=== PATIENT | female | born 1930 | race Caucasian/White ===

== ENCOUNTER 2018-11-14 10:26 | Inpatient (IN) | payer MEDICARE ==
[~2018-11-14] VITALS: Ht 153.7 cm; Wt 60.3 kg
[~2018-11-14 10:26] MED LIST: ALDACTONE25 MG PO; CALTRATE-600 W1 EACH PO; CENTRUM SILVER1 EAC4 PO; DILANTIN50 MG PO; DILTIAZEM ER180 M1 PO; LEVOTHYROXINE25 MCG PO; LISINOPRIL40 MG PO; OCUVITE TABLET1 EAC1 PO; VYTORIN 10-101 EACH PO
[2018-11-14] MEDS ORDERED: SODIUM CHLORIDE 0.9% 1000ML 1,000 ML IV STA (10:37)
[2018-11-14] MEDS ORDERED: ONDANSETRON HCL INJ 2MG/ML 2ML 2 MG/ML VIAL IV ONE ×2 (10:37→14:30)
--- NOTE | 2018-11-14 10:40 | NUR ---
RECEIVED PT FROM [employer] VIA W/C. PT AA&OX3. MOVES RIGHT UPPER AND LOWER EXTREMITIES WITH MODERATE WEAKNESS. LEFT UPPER AND LOWER EXT. FLACCID DUT TO STROKE 30 YRS AGO. PT SLIGHTLY [place]. SPEECH IS CLEAR. FAMILY AT BEDSIDE.
[2018-11-14] MEDS ORDERED: DIATRIZOATE MEGL/DIATRIZOA SOD 30 ML BTL PO ONE (11:09)
[2018-11-14 11:49] LABS: BASOPHILS % 0.2 % (0.0-1.0); EOSINOPHILS % 0.1 % (0.0-6.0); HEMATOCRIT 34.3 % (34.2-44.1); LYMPHOCYTES # (AUTO) 1.2 (1.0-3.2); LYMPHOCYTES % 7.9 % (18.0-39.1); MEAN CORPUSCULAR HEMOGLOBIN 29.9 pg (28-32); MEAN CORPUSCULAR HGB CONC 32.9 g/dL (31-35); MEAN CORPUSCULAR VOLUME 90.7 fL (81-99); MONOCYTES # (AUTO) 0.8 (0.2-0.8); MONOCYTES % 5.4 % (4.4-11.3); NEUTROPHILS % 86.1 % (38.7-80.0); PLATELET COUNT 532 x10e3/uL (140-360); RED BLOOD COUNT 3.78 x10e6/uL (3.6-5.1); RED CELL DISTRIBUTION WIDTH 14.6 % (11.7-14.4)
[2018-11-14 11:59] LABS: HEMOGLOBIN 11.3 g/dL (12.0-16.0)
[2018-11-14 12:03] LABS: INR 1.09; PROTHROMBIN TIME 14.6 seconds (11.9-14.5)
[2018-11-14 12:04] LABS: PARTIAL THROMBOPLASTIN TIME 29.2 seconds (23.8-35.5)
[2018-11-14 12:11] LABS: ALANINE AMINOTRANSFERASE 8 IU/L (0-55); ALBUMIN 3.1 g/dL (3.5-5.0); ALBUMIN/GLOBULIN RATIO 0.8 (0.8-2.0); ALKALINE PHOSPHATASE 58 IU/L (40-150); BLOOD UREA NITROGEN 25 mg/dL (7-26); BUN/CREATININE RATIO 33 (6-25); CALCIUM 9.6 mg/dL (8.4-10.2); CARBON DIOXIDE 22 mmol/L (22-29); CHLORIDE 94 mmol/L (98-107); CREATINE KINASE 38 IU/L (29-168); CREATININE, SERUM 0.75 mg/dL (0.57-1.11); EST GLOMERULAR FILTRATION RATE > 60 ML/MIN (60-); GLUCOSE 104 mg/dL (74-118); SODIUM 133 mmol/L (136-145)
[2018-11-14 12:17] LABS: B-TYPE NATRIURETIC PEPTIDE2 108.8 pg/mL (0-100)
[2018-11-14 12:31] LABS: THYROID STIMULATING HORMONE 1.085 uIU/mL (0.350-4.940)
--- NOTE | 2018-11-14 12:40 | NUR ---
STRAIGHT CATH DONE FOR URINE COLLECTION. PT TOLERATED WELL.
[2018-11-14 13:16] LABS: BILIRUBIN,URINE NEGATIVE (NEGATIVE); CLARITY,URINE SL CLOUDY (CLEAR); COLOR,URINE STRAW (YELLOW); KETONES,URINE 2+ (NEGATIVE); LEUKOCYTE ESTERASE ,URINE 1+ (NEGATIVE); NITRITE,URINE POSITIVE (NEGATIVE); PROTEIN,URINE DIPSTICK NEGATIVE (NEGATIVE); URINE UROBILINOGEN 0.2 mg/dL (0.2 - 1)
--- NOTE | 2018-11-14 13:26 | NUR ---
PTS SON REPORTS THAT PT HAVING NAUSEA. NO VOMITING YET
[2018-11-14 13:27] LABS: BACTERIA,URINE MANY /HPF
[2018-11-14] MEDS: CEFTRIAXONE SOD 1 GM/NS 50 ML 50 ML IV SCH (14:15)
--- NOTE | 2018-11-14 14:15 | NUR ---
PT COMPLAINING OF NAUSEA. ASKING FOR MEDICATION. SPOKE WITH ASSEMBLY INSPECTOR AND INFORMED HIM
--- NOTE | 2018-11-14 14:30 | Diagnostic Imaging Report ---
EXAM: CT Abdomen and Pelvis WITH contrast INDICATION: Constipation, evaluate for small bowel obstruction. COMPARISON: None. TECHNIQUE: Abdomen and pelvis were scanned utilizing a multidetector helical scanner from the lung base to the pubic symphysis after administration of IV contrast. Coronal and sagittal reformations were obtained. Routine protocol was performed. Scan was performed when during portal venous phase. IV CONTRAST: 100 cc of Isovue-370. ORAL CONTRAST: Water COMPLICATIONS: None RADIATION DOSE: Total DLP: 243.9 mGy*cm Dose modulation, iterative reconstruction, and/or weight based adjustment of the mA/kV was utilized to reduce the radiation dose to as low as reasonably achievable. FINDINGS: LINES and TUBES: None. LOWER THORAX: There is a 5 mm solid nodule in the right middle lobe on series 2, image 3. HEPATOBILIARY: There is a 1.8 cm right hepatic lobe hypodense lesion, likely cyst. No definite solid mass. No biliary ductal dilation. GALLBLADDER: Cholelithiasis without CT evidence of cholecystitis. SPLEEN: No splenomegaly. PANCREAS: No focal masses or ductal dilatation. ADRENALS: No adrenal nodules KIDNEYS/URETERS: Kidneys enhance symmetrically. No evidence of hydronephrosis, solid mass, or stone. GI TRACT: There is a ill-defined, large heterogeneous, likely partially necrotic mass in the distal transverse colon, measuring up to 8.5 x 8.1 x 6.2 cm, as seen on series 2, image 45. The mass extends over a length of approximately 8 cm. There is surrounding ill-defined pericolonic nodularity, likely lymphadenopathy, for example measuring up to 2.8 cm on image 35. There is dilation of the small bowel as well as the proximal colon including the ascending and transverse colon proximal to the mass. There is decompression of the distal colon with minimal amount of air and stool seen within the rectum. There is ill-defined perirectal soft tissue, likely representing lymphadenopathy, measuring up to 2.8 x 1.8 cm on series 2, image 64. There are jejunal loops which abut the mass, and may be adherent. There may be adjacent rectal wall thickening. PELVIC ORGANS/BLADDER: Unremarkable. LYMPH NODES: See GI section above for details of pericolonic and perirectal lymphadenopathy. There is an enlarged gastric hepatic lymph node, measuring up to 1.1 cm short axis on image 16. There are prominent left para-aortic lymph nodes, measuring up to 7 mm. VESSELS: Moderate atherosclerotic changes of the abdominal aorta and branch vessels. There is an IVC filter which appears deformed with multiple struts penetrating through the IVC wall including into the vertebral bodies, the peripancreatic soft tissues, and in the right paraspinal musculature. There is a large right hepatic vein to portal vein connection on series 2, image 20. PERITONEUM / RETROPERITONEUM: No free air or fluid. BONES AND SOFT TISSUES: There are mildly displaced subacute left posterior 10th through 12th rib fractures with associated small amount of bony callus formation. CONCLUSION: Ill-defined large heterogeneous mass in the distal transverse colon with associated near complete obstruction of the proximal colon and small bowel. No evidence of pneumatosis or pneumoperitoneum. Findings are consistent with malignancy. Associated pericolonic and gastrohepatic lymphadenopathy. Possibly adherent jejunal loops as above. Additional perirectal soft tissue, likely representing lymphadenopathy measuring up to 2.8 cm with possible rectal wall thickening. This may represent an additional malignancy. Recommend GI consultation for further evaluation. A 5 mm indeterminant right middle lobe pulmonary nodule. Suggest follow-up chest CT for oncologic staging. IVC filter with extensive caval penetration as above. Mildly displaced subacute left posterior 10th through 12th rib fractures. 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 Signed by: Dr. Radha Quinones MD on 11/14/2018 2:27 PM
[2018-11-14] MEDS ORDERED: CEFTRIAXONE SOD 1 GM/NS 50 ML 50 ML IV SCH (14:45)
--- NOTE | 2018-11-14 14:55 | NUR ---
ER PHYSICIAN SPOKE EXTENSIVELY WITH PATIENT AND FAMILY ABOUT CT FINDINGS AND PLAN FOR ADMISSION
--- OUTSIDE RECORDS SUMMARY | 2018-11-14 14:55 | XMS REPORT ---
Author Author [facility] Address Unknown Phone Unavailable Care Team Providers Care Screening Representative Name Role Phone Kristie WAGONER Unavailable Unavailable Problems This patient has no known problems. Allergies, Adverse Reactions, Alerts This patient has no known allergies or adverse reactions. Medications This patient has no known medications. Results Test Description Test Time Test Comments Text Results Atomic Results Result Comments CT ABDOMEN/PELVIS W 2018-11-14 14:05:00 [facility] [address] [place], [place] [address] Patient Name: COOKIE OLIVA MR #: [id number] : 1930 Age/Sex: 88/F Req #: [id number] Adm Physician: Ordered by: EPI VENEGAS MANAGER BIOLOGICS Report #: [id number] Location: ER Room/Bed: Procedure: [id number] CT/CT ABDOMEN/PELVIS W Exam Date: 11/14/18 Exam Time: 1230 REPORT STATUS: Signed EXAM: CT Abdomen and Pelvis WITH contrast INDIC ATION: Constipation, evaluate for small bowel obstruction. COMPARISON: None. TECHNIQUE: Abdomen and pelvis were scanned utilizing a multidetector helical scanner from the lung base to the pubic symphysis after administration of IV contrast. Coronal and sagittal reformations were obtained. Routine protocol was performed. Scan was performed when during portal venous phase. IV CONTRAST: 100 cc of Isovue-370. ORAL CONTRAST: Water COMPLICATIONS: None RADIATION DOSE: Total DLP: 243.9 mGy*cm Dose modulation, iterative reconstruction, and/or weight based adjustment of the mA/kV was utilized to reduce the radiation dose to as low as reasonably achievable. FINDINGS: LINES and TUBES: None. LOWER THORAX: There is a 5 mm solid nodule in the right middle lobe on series 2, image 3. HEPATOBILIARY: There is a 1.8 cm right hepatic lobe hypodense lesion, likely cyst. No definite solid mass. No biliary ductal dilation. GALLBLADDER: Cholelithiasis without CT evidence of cholecystitis. SPLEEN: No splenomegaly. PANCREAS: No focal masses or ductal dilatation. ADRENALS: No adrenal nodules KIDNEYS/URETERS: Kidneys enhance symmetrically. No evidence of hydronephrosis, solid mass, or stone. GI TRACT: There is a ill-defined, large heterogeneous, likely partially necrotic mass in the distal transverse colon, measuring up to 8.5 x 8.1 x 6.2 cm, as seen on series 2, image 45. The mass extends over a length of approximately 8 cm. There is surrounding ill-defined pericolonic nodularity, likely lymphadenopathy, for example measuring up to 2.8 cm on image 35. There is dilation of the small bowel as well as the proximal colon including the ascending and transverse colon proximal to the mass. There is decompression of the distal colon with minimal amount of air and stool seen within the rectum. There is ill-defined perirectal soft tissue, likely representing lymphadenopathy, measuring up to 2.8 x 1.8 cm on series 2, image 64. There are jejunal loops which abut the mass, and may be adherent. There may be adjacent rectal wall thickening. PELVIC ORGANS/BLADDER: Unremarkable. LYMPH NODES: See GI section above for details of pericolonic and perirectal lymphadenopathy. There is an enlarged gastric hepatic lymph node, measuring up to 1.1 cm short axis on image 16. There are prominent left para-aortic lymph nodes, measuring up to 7 mm. VESSELS: Moderate atherosclerotic changes of the abdominal aorta and branch vessels. There is an IVC filter which appears deformed with multiple struts penetrating through the IVC wall including into the vertebral bodies, the peripancreatic soft tissues, and in the right paraspinal musculature. There is a large right hepatic vein to portal vein connection on series 2, image 20. PERITONEUM / RETROPERITONEUM: No free air or fluid. BONES AND SOFT TISSUES: There are mildly displaced subacute left posterior 10th through 12th rib fractures with associated small amount of bony callus formation. CONCLUSION: Ill-defined large heterogeneous mass in the distal transverse colon with associated near complete obstruction of the proximal colon and small bowel. No evidence of pneumatosis or pneumoperitoneum. Findings are consistent with malignancy. Associated pericolonic and gastrohepatic lymphadenopathy. Possibly adherent jejunal loops as above. Additional perirectal soft tissue, likely representing lymphadenopathy measuring up to 2.8 cm with possible rectal wall thickening. This may represent an additional malignancy. Recommend GI consultation for further evaluation. A 5 mm indeterminant right middle lobe pulmonary nodule. Suggest follow-up chest CT for oncologic staging. IVC filter with extensive caval penetration as above. Mildly displaced subacute left posterior 10th through 12th rib fractures. 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 Signed by: Dr. Jose De Jesus Kingston MD on 11/14/2018 2:27 PM Dictated By: JOSE DE JESUS KINGSTON MD [id number] Transcribed By: KANDI on 11/14/18 1427 COPY TO: EPI VENEGAS NP
--- NOTE | 2018-11-14 15:40 | NUR ---
WHEN ER PHYSICIAN SPOKE WITH PATIENT EARLIER SHE TOLD HER TO LET US KNOW WHEN SHE NEEDED PAIN MED. PATIENT TOLD ME NOW THAT SHE WAS READY FOR PAIN MED. TALKED TO ERP AND MORPHINE ORDERED.
[2018-11-14] MEDS ORDERED: MORPHINE SULFATE INJ 4 MG/ML INJ 1ML IV PRN (15:45)
[2018-11-14] MEDS ORDERED: IOPAMIDOL 370 MG/ML 200 ML INFUS..BTL INJ ONE (15:55)
[2018-11-14] MEDS ORDERED: SODIUM CHLORIDE 0.9% 50ML 50 ML ONE (15:55)
--- NOTE | 2018-11-14 16:40 | NUR ---
PT MEDICATED FOR PAIN. SAYS PAIN STILL 01/15. FAMILY REMAINS AT BEDSIDE. PTS SON SAID THAT HIS SISTER HAS THE LIST OF PTS HOME MEDS AND SHE WILL BE HERE LATER
--- NOTE | 2018-11-14 17:58 | NUR ---
pt arrived to floor , resp even and unlabored at this time, no distress noted, pt able to make needs known, c/o pain at 4/10, pt had family member at bedside, bed in lowest position. bed rails up x2, iv to left ac, clean and intact, NS 125ml/hr, pt oriented to room and call light will cont to monitor.
[2018-11-14 18:30] VITALS: BP 158/73
--- NOTE | 2018-11-14 19:00 | NUR ---
Report received and walking rounds complete. Pt resting in bed and in no apparent distress. Pt family at bedside. Pt on tele, room air, and IV fluids. All safety measures ensured, bed alarm on and pt call mcnair near. Pt encouraged to use call mcnair for assistance.
--- NOTE | 2018-11-14 19:09 | NUR ---
report given to oncoming nurse.
--- NOTE | 2018-11-14 19:09 | NUR ---
report given to oncoming nurse.
[2018-11-14 19:20] VITALS: BP 159/76
[2018-11-14 20:00] VITALS: BP 154/76
[2018-11-15] VITALS (10 sets, daily range): BP systolic 135–187; BP diastolic 66–94
--- NOTE | 2018-11-15 01:30 | NUR ---
Report given to FOREST Álvarez for pt to be transferred room 107.
--- NOTE | 2018-11-15 01:35 | NUR ---
Pt transferred to room 107. Pt A&O and in no apparent distress.
--- NOTE | 2018-11-15 01:47 | NUR ---
Dr.M. Carlos rounding; ok for pt to restart on IV fluids.
[2018-11-15] MEDS: SODIUM CHLORIDE 0.9% 1000ML 1,000 ML IV SCH ×3 (02:16→17:13)
[2018-11-15] MEDS: ONDANSETRON HCL INJ 2MG/ML 2ML 2 MG/ML VIAL IV PRN ×2 (02:17→08:07)
[2018-11-15] MEDS ORDERED: SIMVASTATIN20 MG PO (04:52)
[2018-11-15] MEDS ORDERED: LOSARTAN POTASS25 MG PO (04:53)
[2018-11-15] MEDS ORDERED: IBUPROFEN400 MG PO (04:55)
[2018-11-15 05:59] LABS: BASOPHILS % 0.2 % (0.0-1.0); EOSINOPHILS # (AUTO) 0.1 (0.0-0.4); EOSINOPHILS % 0.4 % (0.0-6.0); HEMATOCRIT 33.7 % (34.2-44.1); HEMOGLOBIN 10.9 g/dL (12.0-16.0); LYMPHOCYTES # (AUTO) 1.2 (1.0-3.2); MEAN CORPUSCULAR HEMOGLOBIN 29.9 pg (28-32); MEAN CORPUSCULAR HGB CONC 32.3 g/dL (31-35); MEAN CORPUSCULAR VOLUME 92.3 fL (81-99); MONOCYTES # (AUTO) 0.8 (0.2-0.8); MONOCYTES % 4.9 % (4.4-11.3); NEUTROPHILS # (AUTO) 14.9 (2.1-6.9); PLATELET COUNT 465 x10e3/uL (140-360); RED BLOOD COUNT 3.65 x10e6/uL (3.6-5.1); RED CELL DISTRIBUTION WIDTH 14.6 % (11.7-14.4)
[2018-11-15 06:16] LABS: ANION GAP 16.5 mmol/L (8-16); BLOOD UREA NITROGEN 17 mg/dL (7-26); BUN/CREATININE RATIO 27 (6-25); CALCIUM 8.4 mg/dL (8.4-10.2); CARBON DIOXIDE 21 mmol/L (22-29); CHLORIDE 102 mmol/L (98-107); CREATININE, SERUM 0.63 mg/dL (0.57-1.11); EST GLOMERULAR FILTRATION RATE > 60 ML/MIN (60-); GLUCOSE 86 mg/dL (74-118); POTASSIUM 3.5 mmol/L (3.5-5.1); SODIUM 136 mmol/L (136-145)
--- NOTE | 2018-11-15 06:53 | NUR ---
Report given to oncoming nurse and walking rounds/bedshift report completed.
[2018-11-15] MEDS: HYDROMORPHONE 2MG/ML 2 MG/ML ML IV PRN (08:06)
[2018-11-15] MEDS ORDERED: BISACODYL 5 MG TAB EC PO NR ×2 (11:00→14:30)
--- NOTE | 2018-11-15 11:00 | NUR ---
PAGED DR. Elisa GARCIA AT THIS TIME FOR PLAN. RECEIVED ORDERS FOR POSSIBLE COLONOSCOPY TODAY.
[2018-11-15] MEDS: METOCLOPRAMIDE HCL 10 MG/2ML VIAL IV SCH ×3 (11:48→17:13)
[2018-11-15] MEDS: PANTOPRAZOLE 40 MG 10ML VIAL IV SCH ×2 (11:48→16:19)
--- NOTE | 2018-11-15 11:48 | NUR ---
NOTIFIED DR. Elisa GARCIA PT HAS NOT HAD BM YET. RECEIVED ORDERS FOR ENEMAS UNTIL CLEAR.
[2018-11-15] MEDS ORDERED: CITRATE OF MAGNESIA 300ML BOTTLE PO NR ×2 (12:00→13:00)
[2018-11-15] MEDS: BISACODYL 5 MG TAB EC PO SCH ×3 (12:30→13:29)
[2018-11-15] MEDS: CEFTRIAXONE SOD 1 GM/NS 50 ML 50 ML IV SCH (12:56)
--- NOTE | 2018-11-15 15:48 | NUR ---
PT STILL WITH NO BM. SECOND TAP WATER ENEMA COMPLETE AT THIS TIME.
--- NOTE | 2018-11-15 16:08 | NUR ---
NOTIFIED DR. Elisa GARCIA PT STILL HAS NOT HAD BM. RECEIVED ORDER FOR FLEET ENEMA AND MILK OF MAG. COLONOSCOPY RESCHEDULED FOR TOMORROW.
[2018-11-15] MEDS ORDERED: MAGNESIUM HYDROXIDE 30 ML UDC PO ONE ×3 (16:15→22:15)
[2018-11-15] MEDS: SOD PHOSPHATE/SOD BIPHOSPHATE ENEMA 132 ML BTL PR PRN ×2 (17:12→18:13)
--- NOTE | 2018-11-15 18:58 | NUR ---
RECEIVED CALL FROM MISSILE TECHNICIAN PT HR IN 140'S. PT FOUND RESTING IN BED NO S/S OF DISTRESS NO COMPLAINTS AT AT THIS TIME. HR 146. NOTIFIED DR. ARIAS RECEIVED ORDERS FOR METOPROLOL 5MG IV X1 AND EKG AFTER ADMINISTRATION. METOPROLOL ADMINISTERED RESP TECH CALLED FOR EKG. REPORT GIVEN TO RECEIVING MEDICAL CHARGE ENTRY SPECIALIST NURSE.
[2018-11-15] MEDS ORDERED: METOPROLOL TARTRATE INJ 1 MG/ML VIAL IV ONE (19:00)
--- NOTE | 2018-11-15 19:00 | NUR ---
RECEIVED REPORT FROM DAY NURSE. PATIENT IS RESTING COMFORTABLY IN BED.PATIENT IS REQUESTING IF SHE CAN HAVE SOME ICE CHIPS TO HELP ALLEVIATE HER DRY MOUTH. MD WILL BE PAGED TO ENQUIRE ABOUT PATIENT'S REQUESTS.
--- NOTE | 2018-11-15 19:41 | NUR ---
MD CALLED BACK AND GAVE ORDERS TO DC NPO DIET AND PUT PATIENT ON CLEAR LIQUID DIET.ALSO RECEIVED ORDERS TO GIVE PATIENT 90CC OF MILK OF MAGNESIA NOW AND AGAIN AT 10PM. WILL CONTINUE TO MONITOR PATIENT FOR A BOWEL MOVEMENT.
[2018-11-15] MEDS: DEXTROSE 5%/0.45% SOD CHL 1,000 ML IV SCH (20:38)
--- NOTE | 2018-11-15 23:00 | NUR ---
patient has had one episode of stool. stool is brown and pasty in composition. denies pain or discomfort. Patient's diaper has been changed. Will continue to monitor patient for bowel movements.
[2018-11-16] VITALS (10 sets, daily range): BP systolic 107–140; BP diastolic 54–66
[2018-11-16] MEDS: METOCLOPRAMIDE HCL 10 MG/2ML VIAL IV SCH ×4 (00:48→18:00)
--- NOTE | 2018-11-16 02:00 | NUR ---
patient has had a second bowel movement. bowel movement is brown and pasty in composition. No complaints of pain or discomfort from patient. will continue to monitor patient for bowel movements.
[2018-11-16] MEDS: DEXTROSE 5%/0.45% SOD CHL 1,000 ML IV SCH ×3 (03:00→19:00)
--- NOTE | 2018-11-16 07:15 | NUR ---
report given to day nurse. patient is resting comfortably in bed. bed is in lowest position and call mcnair is within reach.
--- NOTE | 2018-11-16 08:55 | NUR ---
PT CLEANSED OF LOOSE BROWN STOOL, REPOSITIONED, HOB ELEVATED, CALL LIGHT WITHIN REACH
[2018-11-16] MEDS: PANTOPRAZOLE 40 MG 10ML VIAL IV SCH ×2 (09:00→21:33)
[2018-11-16] MEDS ORDERED: ACETYLCYSTEINE 20% INHAL SOLN 30 ML VIAL INH ONE (09:00)
[2018-11-16] MEDS ORDERED: MAGNESIUM HYDROXIDE 30 ML UDC PO ONE ×2 (09:00)
--- NOTE | 2018-11-16 09:08 | NUR ---
MD Moy JOHNS INTO SEE PT, DISCUSSED POC WITH PT AND FAMILY
--- NOTE | 2018-11-16 10:42 | Consultation ---
DATE OF CONSULTATION: 11/16/2018 REASON FOR CONSULTATION: Bowel obstruction. HISTORY OF PRESENT ILLNESS: The patient is an 88-year-old female admitted to Dr. Anish Carlos Service via the emergency room because of progressive weakness, abdominal distention, and pain. The patient when interviewed, is lying in bed. She at this time appears to be chronically ill. She is forgetful at this time and the history is taken from her son who is at bedside. The patient in the emergency room had a CT scan that revealed large bowel obstruction in the area of transverse colon with small bowel dilatation. In addition to that, there is perirectal inflammation and lymphadenopathy. There is also enlarged perigastric node. PAST MEDICAL HISTORY: Remarkable for stroke several years ago. She has an IVC filter in place by CT scan. She has a history of hypertension. PAST SURGICAL HISTORY: The patient has no documented previous surgical history. SOCIAL HISTORY: She does not drink, does not smoke. ALLERGIES: SHE HAS NO KNOWN ALLERGIES. PHYSICAL EXAMINATION: GENERAL: Reveals an 88-year-old female, who is in bed. She is at this time in no acute distress. She is forgetful and unable to answer questions meaningfully. HEAD, EYES, EARS, NOSE, AND THROAT: Reveals no acute process. LUNGS: Clear. ABDOMEN: Distended. Soft. No peritoneal signs. There is a palpable mass in the mid upper abdominal area consistent with the mass of the transverse colon seen on CT scan. RECTAL: Reveals palpable mass easily palpable by my examining finger located somewhat posteriorly. It appears to be irregular in nature. There is liquid and brown stool in the lower rectum and anal canal. NEUROLOGICAL: The patient has hemiparesis. The left hand is contracted. LABORATORY DATA: Admission CT scan reports are noted as well as the labs. IMPRESSION: Obstructed transverse colon carcinoma. In addition to that, there is a palpable mass in the rectum of unclear etiology at this time. Of note is the fact that the CT scan reveals perirectal adenopathy and thickening of the wall of the rectum. PLAN: At this point, the patient is being prepped for colonoscopy by Dr. Walt Carlos. We will await the colonoscopy results before any further recommendations can be made. MD BOBBY Hillman/ERYN /[id number]
--- NOTE | 2018-11-16 10:55 | NUR ---
PT TOLERATED ENEMA AT THIS TIME,
--- NOTE | 2018-11-16 11:02 | NUR ---
TELEPHONED MD Anjelica GARCIA TO MAKE AWARE THAT PT IS NOT CLEAR AFTER ENEMA, SPOKE WITH PAVEL, AWAITING CALL BACK
--- NOTE | 2018-11-16 11:30 | NUR ---
ENEMA GIVEN PER MD Anjelica GARCIA , PT TOLERATED
--- NOTE | 2018-11-16 12:34 | NUR ---
SON NOTIFIED NURSE THAT HE "HAS GIVEN HER A FEW SIPS OF WATER TODAY", PAVEL DOOLEY NURSE NOTIFIED MD Anjelica GARCIA, PT WHEELED OFF UNIT VIA BED FOR COLONOSCOPY, NO CHANGE IN CONDITION, FAMILY AT SIDE
[2018-11-16] MEDS ORDERED: CEFEPIME HCL 1 GM VIAL IV STA (13:27)
[2018-11-16] MEDS ORDERED: PROPOFOL IV EMULSION 10 MG/ML 50 ML VIAL ONE (13:29)
[2018-11-16] MEDS ORDERED: LIDOCAINE HCL 2% LOCAL INJ 5 ML SDV VIAL INJ ONE (13:29)
[2018-11-16] MEDS: CEFTRIAXONE SOD 1 GM/NS 50 ML 50 ML IV SCH ×2 (13:45→15:30)
[2018-11-16] MEDS ORDERED: CEFEPIME 1GM/NS 0.9% 50 ML 50 ML IV SCH (14:00)
--- NOTE | 2018-11-16 14:30 | NUR ---
BACK IN ROOM VIA BED, AWAKENS EASILY TO VOICE, 3L NC IN PLACE, NGT TO WALL SUCTION PER MD ORDER, SCANT AMOUNT OF BROWN TINGED DRAINAGE NOTED, HOB ELEVATED, DENIES PAIN, FAMILY AT SIDE, CALL LIGHT WITHIN REACH
--- NOTE | 2018-11-16 16:48 | NUR ---
NGT IRRIGATED, PT TOLERATED, PCT ASSISTED TO CLEANSE PT OF LOOSE BROWN STOOL, LINEN CHANGED, REPOSITIONED, HOB ELEVATED, CALL LIGHT WITHIN REACH, FAMILY AT SIDE
--- NOTE | 2018-11-16 18:16 | NUR ---
PCT'S CLEANSED PT OF LOOSE BM, LINENS CHANGED, REPOSITIONED, HOB ELEVATED, CALL LIGHT WITHIN REACH
--- NOTE | 2018-11-16 19:48 | Operative Report ---
DATE OF PROCEDURE: 11/16/2018 SURGEON: Walt Carlos MD PROCEDURE: Colonoscopy with biopsies. ADDITIONAL REFERRING PHYSICIAN: Dr. Anish Carlos. INDICATIONS FOR COLONOSCOPY: Colon mass on CT scan. MEDICATIONS: The patient was done under MAC. Please see anesthesiologist's note. PROCEDURE IN DETAIL: With the patient in left lateral decubitus position, flexible fiberoptic Olympus colonoscope was inserted into the rectum with ease. An obstructing fully circumferential mass was noted in the proximal rectum. Biopsies were obtained. The mass could not be traversed with the adult Olympus scope, so the scope was then withdrawn and an EGD scope was then introduced into the rectum and with gentle persistent pressure, the mass was traversed and the scope was advanced all the way to the distal transverse colon. The other large obstructing mass described on the CAT scan was noted and biopsies were obtained. The scope was then withdrawn back into the descending colon where some diverticular disease was noted and was withdrawn back into the rectum and retroflexed and some internal hemorrhoids were noted, none of which were actively bleeding. The scope was subsequently withdrawn. The patient tolerated procedure well. IMPRESSION: 1. Obstructing mass in distal transverse colon, biopsied. 2. Diverticulosis. 3. Obstructing mass in proximal rectum, traversed only with EGD scope, biopsied. 4. Internal hemorrhoids, none actively bleeding. PLAN: Follow up histology. Walt Carlos MD [facility] [place] /[id number] cc: MD Shawn Hillman DO Steve S Haddad, MD
--- NOTE | 2018-11-16 22:16 | NUR ---
PATIENT FOUND WITH NGT REMOVED. NGT REPLACED TO RIGHT NARE 16FR BY CHARGE NURSE X1 ATTEMPT, PATIENT TOLERATING WELL. PLACEMENT CHECKED X2 NURSE WITH AIR WHOOSH TEST. AWAITING KUB RESULTS FOR PLACEMENT VERIFICATION BEFORE RESUMING SUCTION.
--- NOTE | 2018-11-16 22:59 | Diagnostic Imaging Report ---
EXAM: Abdomen 1 View INDICATION: ^NGT PLACEMENT ^[id number] ^[id number] COMPARISON: CT dated 11/24/2018 FINDINGS: See impression. IMPRESSION: Nasogastric tube in place with tip projecting over the gastric body. Partially seen gaseous distention of bowel loops. Signed by: Dr. Irvin Brower MD on 11/16/2018 10:56 PM
--- NOTE | 2018-11-16 23:06 | NUR ---
PLACEMENT VERIFIED BY KUB, NGT TO SUCTION. PATIENT IS RESTING IN BED AT THIS TIME. NO NEEDS VOICED. NO DISTRESS OBSERVED. BED LOCKED AND IN LOWEST POSITION, CALL LIGHT WITHIN EASY REACH. WILL CONTINUE TO MONITOR THE PATIENT CLOSELY.
[2018-11-17] VITALS (7 sets, daily range): BP systolic 109–141; BP diastolic 52–65
[2018-11-17] MEDS: METOCLOPRAMIDE HCL 10 MG/2ML VIAL IV SCH ×4 (01:11→16:22)
[2018-11-17] MEDS: DEXTROSE 5%/0.45% SOD CHL 1,000 ML IV SCH ×3 (03:00→18:13)
--- NOTE | 2018-11-17 06:57 | Diagnostic Imaging Report ---
EXAMINATION: CHEST SINGLE (PORTABLE) INDICATION: ^possible aspiration ^[id number] ^[id number] COMPARISON: 11/16/2018 FINDINGS: AP view TUBES and LINES: Nasogastric tube extends beyond the inferior margin of the film. LUNGS: Lungs are well inflated. Bilateral airspace opacities, most notable in the medial lower lung okeefe. Central vascular congestion. PLEURA: No pneumothorax. Suspected trace left pleural effusion. HEART AND MEDIASTINUM: The cardiac silhouette is enlarged. Aorta is calcified and tortuous. BONES AND SOFT TISSUES: No acute osseous lesion. Soft tissues are unremarkable. UPPER ABDOMEN: No free air under the diaphragm. IMPRESSION: Bilateral medial lower lung field airspace opacities, increased from prior exam, suspicious for aspiration/pneumonia. Pulmonary vascular congestion and suspected trace left pleural effusion. Signed by: Dr. Irvin Brower MD on 11/17/2018 6:53 AM
[2018-11-17] MEDS: PANTOPRAZOLE 40 MG 10ML VIAL IV SCH ×2 (08:23→20:36)
[2018-11-17 09:44] LABS: BASOPHILS % 0.1 % (0.0-1.0); EOSINOPHILS # (AUTO) 0.1 (0.0-0.4); EOSINOPHILS % 0.3 % (0.0-6.0); HEMATOCRIT 30.3 % (34.2-44.1); HEMOGLOBIN 9.8 g/dL (12.0-16.0); LYMPHOCYTES # (AUTO) 1.4 (1.0-3.2); LYMPHOCYTES % 8.1 % (18.0-39.1); MEAN CORPUSCULAR HEMOGLOBIN 30.4 pg (28-32); MEAN CORPUSCULAR HGB CONC 32.3 g/dL (31-35); MEAN CORPUSCULAR VOLUME 94.1 fL (81-99); MONOCYTES # (AUTO) 0.7 (0.2-0.8); MONOCYTES % 3.7 % (4.4-11.3); NEUTROPHILS # (AUTO) 15.3 (2.1-6.9); NEUTROPHILS % 87.1 % (38.7-80.0); PLATELET COUNT 350 x10e3/uL (140-360); RED BLOOD COUNT 3.22 x10e6/uL (3.6-5.1); RED CELL DISTRIBUTION WIDTH 14.6 % (11.7-14.4)
[2018-11-17 10:01] LABS: ANION GAP 8.5 mmol/L (8-16); BLOOD UREA NITROGEN 16 mg/dL (7-26); BUN/CREATININE RATIO 27 (6-25); CARBON DIOXIDE 36 mmol/L (22-29); CHLORIDE 98 mmol/L (98-107); CREATININE, SERUM 0.59 mg/dL (0.57-1.11); EST GLOMERULAR FILTRATION RATE > 60 ML/MIN (60-); GLUCOSE 117 mg/dL (74-118); SODIUM 140 mmol/L (136-145)
[2018-11-17 10:23] LABS: POTASSIUM 2.5 mmol/L (3.5-5.1)
[2018-11-17] MEDS: HYDROMORPHONE 2MG/ML 2 MG/ML ML IV PRN (10:36)
[2018-11-17] MEDS: POTASSIUM CHLORIDE 20MEQ/100ML 100 ML IV SCH ×3 (10:46→16:21)
[2018-11-17] MEDS ORDERED: HYDROMORPHONE 2MG/ML 2 MG/ML ML IV PRN (12:30)
[2018-11-17] MEDS: CEFTRIAXONE SOD 1 GM/NS 50 ML 50 ML IV SCH (12:39)
[2018-11-17] MEDS: SODIUM CHLORIDE 0.9% IRRIG 3,000 ML BAG IR SCH ×3 (12:39→22:00)
--- NOTE | 2018-11-17 19:53 | NUR ---
Received change of shift report from AM nurse. Walking rounds completed.
[2018-11-18] VITALS (8 sets, daily range): BP systolic 116–137; BP diastolic 58–60
[2018-11-18] MEDS: SODIUM CHLORIDE 0.9% IRRIG 3,000 ML BAG IR SCH ×6 (02:00→22:07)
[2018-11-18] MEDS: DEXTROSE 5%/0.45% SOD CHL 1,000 ML IV SCH ×3 (03:00→22:07)
[2018-11-18 05:40] LABS: BASOPHILS % 0.1 % (0.0-1.0); EOSINOPHILS % 0.3 % (0.0-6.0); HEMATOCRIT 29.9 % (34.2-44.1); HEMOGLOBIN 9.5 g/dL (12.0-16.0); LYMPHOCYTES # (AUTO) 0.9 (1.0-3.2); LYMPHOCYTES % 7.8 % (18.0-39.1); MEAN CORPUSCULAR HEMOGLOBIN 29.7 pg (28-32); MEAN CORPUSCULAR HGB CONC 31.8 g/dL (31-35); MEAN CORPUSCULAR VOLUME 93.4 fL (81-99); MONOCYTES # (AUTO) 0.4 (0.2-0.8); MONOCYTES % 3.6 % (4.4-11.3); NEUTROPHILS # (AUTO) 10.6 (2.1-6.9); NEUTROPHILS % 87.5 % (38.7-80.0); PLATELET COUNT 315 x10e3/uL (140-360); RED CELL DISTRIBUTION WIDTH 14.7 % (11.7-14.4)
[2018-11-18] MEDS: METOCLOPRAMIDE HCL 10 MG/2ML VIAL IV SCH ×4 (05:42→17:06)
[2018-11-18 05:54] LABS: ANION GAP 8.3 mmol/L (8-16); BLOOD UREA NITROGEN 14 mg/dL (7-26); BUN/CREATININE RATIO 26 (6-25); CALCIUM 7.8 mg/dL (8.4-10.2); CARBON DIOXIDE 32 mmol/L (22-29); CHLORIDE 99 mmol/L (98-107); CREATININE, SERUM 0.53 mg/dL (0.57-1.11); EST GLOMERULAR FILTRATION RATE > 60 ML/MIN (60-); GLUCOSE 132 mg/dL (74-118); POTASSIUM 3.3 mmol/L (3.5-5.1); SODIUM 136 mmol/L (136-145)
--- NOTE | 2018-11-18 06:00 | NUR ---
Patient resting quitly at this time.
--- NOTE | 2018-11-18 06:28 | Diagnostic Imaging Report ---
Examination: Single AP view of the chest. COMPARISON: November 17, 2018 INDICATION: Massively large amount DISCUSSION: Lines/tubes: Enteric tube tip not visualized. Lungs: Left lower lobe consolidation. Central venous congestion. Pleura: Probable left effusion. Heart and mediastinum: The heart and the mediastinum are unremarkable. Bones and soft tissues: No acute bony abnormalities. IMPRESSION: 1. Stable left lower lobe consolidation and effusion. Signed by: Dr. Junior Hansen M.D. on 11/18/2018 6:24 AM
--- NOTE | 2018-11-18 07:23 | NUR ---
RECEIVED PATIENT ASLEEP IN BED NO SIGNS OF DISTRESS. BED LOW, WHEELS LOCKED, SIDE RAILS X2, CALL LIGHT IN REACH WILL CONTINUE TO MONITOR PATIENT.
[2018-11-18] MEDS: PANTOPRAZOLE 40 MG 10ML VIAL IV SCH ×2 (08:41→21:10)
--- NOTE | 2018-11-18 10:27 | NUR ---
PATIENT A/O X2, UNLABORED RESPIRATIONS ON 3LNC. NGT TO RIGHT NARE IN PLACE TO LCWS. RIGHT AC 20 GAUGE IV WITH IVF @ 75 CC/HR. TELE #8 SR. BLE EDEMA +2 YARD CLEANER. DIAPER IN PLACE. HEEL PROTECTORS BILATERALLY AND SCD'S. NO SIGNS OF DISTRESS AT THIS TIME. WILL CONTINUE TO MONITOR PATIENT.
[2018-11-18] MEDS ORDERED: FENTANYL 50 MCG/HR PATCH TD SCH (11:15)
[2018-11-18] MEDS: CEFTRIAXONE SOD 1 GM/NS 50 ML 50 ML IV SCH (14:47)
--- NOTE | 2018-11-18 20:20 | NUR ---
Asessment done.no resp.distress.repositioned. bed locked and in lowest position.phone and call light within reach.informed to call for assistance as needed.
--- NOTE | 2018-11-18 23:00 | NUR ---
Dr.M Carlos has seen the pt.no new orders.Ng tube to contd.low wall suction.working well.on npo.new iv changed to right for arm.patent.keep monitor the pt.
[2018-11-19] VITALS (8 sets, daily range): BP systolic 123–147; BP diastolic 63–68
[2018-11-19] MEDS: METOCLOPRAMIDE HCL 10 MG/2ML VIAL IV SCH ×5 (00:41→23:30)
[2018-11-19] MEDS: SODIUM CHLORIDE 0.9% IRRIG 3,000 ML BAG IR SCH ×6 (02:00→22:00)
[2018-11-19] MEDS: DEXTROSE 5%/0.45% SOD CHL 1,000 ML IV SCH ×3 (03:00→18:02)
[2018-11-19 06:04] LABS: BASOPHILS % 0.1 % (0.0-1.0); EOSINOPHILS % 0.3 % (0.0-6.0); HEMATOCRIT 31.1 % (34.2-44.1); HEMOGLOBIN 10.1 g/dL (12.0-16.0); LYMPHOCYTES % 6.7 % (18.0-39.1); MEAN CORPUSCULAR HEMOGLOBIN 30.1 pg (28-32); MEAN CORPUSCULAR HGB CONC 32.5 g/dL (31-35); MEAN CORPUSCULAR VOLUME 92.6 fL (81-99); MONOCYTES # (AUTO) 1.2 (0.2-0.8); MONOCYTES % 8.1 % (4.4-11.3); NEUTROPHILS # (AUTO) 12.9 (2.1-6.9); NEUTROPHILS % 83.8 % (38.7-80.0); PLATELET COUNT 308 x10e3/uL (140-360); RED BLOOD COUNT 3.36 x10e6/uL (3.6-5.1); RED CELL DISTRIBUTION WIDTH 14.8 % (11.7-14.4)
[2018-11-19 06:15] LABS: ANION GAP 8.2 mmol/L (8-16); BLOOD UREA NITROGEN 11 mg/dL (7-26); BUN/CREATININE RATIO 21 (6-25); CARBON DIOXIDE 30 mmol/L (22-29); CHLORIDE 98 mmol/L (98-107); CREATININE, SERUM 0.52 mg/dL (0.57-1.11); EST GLOMERULAR FILTRATION RATE > 60 ML/MIN (60-); GLUCOSE 109 mg/dL (74-118); POTASSIUM 3.2 mmol/L (3.5-5.1); SODIUM 133 mmol/L (136-145)
--- NOTE | 2018-11-19 06:50 | NUR ---
Report given to the oncoming rn.waking rounds done.stable condition.
--- NOTE | 2018-11-19 07:32 | NUR ---
RECEIVED PATIENT ASLEEP IN BED NO SIGNS OF DISTRESS AT THIS TIME. BED LOW, WHEELS LOCKED, SIDE RAILS X2. CALL LIGHT IN REACH WILL CONTINUE TO MONITOR PATIENT.
[2018-11-19] MEDS: PANTOPRAZOLE 40 MG 10ML VIAL IV SCH ×2 (08:20→21:16)
--- NOTE | 2018-11-19 08:48 | NUR ---
GAVE OPTIONS OF FACILITIES TO GO LOOK AT YESTERDAY, SPOKE WITH ELIA DAUGHTER TODAY AND SHE STATES SHE HAS A BROTHER THAT IS COMING INTO TOWN TODAY AND THEY WILL MAKE A DECISION ON HOSPICE AND FACILITY WHEN HE GETS HERE THIS AFTERNOON.
--- NOTE | 2018-11-19 09:35 | NUR ---
PATIENT A/O X2, EVEN RESPIRATIONS ON 3LNC. SKIN INTACT. BILATERAL EDEMA TO LOWER EXTREMITIES 1+ SHOULDER BONER. PATIENT INCONTINENT VOIDS IN DIAPER. RIGHT FA 22 GAUGE IV WIT NS @ 75 ML/HR. SCD's IN PLACE AND ALTERNATE MATTRESS. NGT TO RIGHT NARE WITH LCWS. VITAL SIGNS STABLE NO SIGNS OF DISTRESS. WILL CONTINUE TO MONITOR PATIENT.
--- NOTE | 2018-11-19 10:06 | NUR ---
VERBAL ORDER FROM DR. Moy JOHNS TO STOP BLOOD DRAWS.
[2018-11-19] MEDS: CEFTRIAXONE SOD 1 GM/NS 50 ML 50 ML IV SCH (13:37)
--- NOTE | 2018-11-19 16:12 | NUR ---
FAMILY CHOSE TO USE [facility] AT THE MEDICAL RESORT FOR [facility], CALLED REP TO COME LIGHTNING ROD INSTALLER PACKET AND MEET WITH FAMILY.
--- NOTE | 2018-11-19 20:40 | NUR ---
Assessment done .no rep.distress.no pain voiced.repositioned .bed locked and in lowest position.bed alarm on.scd is in place.phone and call light within reach.informed to call for assistance as needed.
[2018-11-20 00:20] VITALS: BP 148/66
[2018-11-20] MEDS: SODIUM CHLORIDE 0.9% IRRIG 3,000 ML BAG IR SCH ×3 (01:55→09:30)
[2018-11-20] MEDS: DEXTROSE 5%/0.45% SOD CHL 1,000 ML IV SCH (03:58)
[2018-11-20 04:00] VITALS: BP 140/66
[2018-11-20] MEDS: METOCLOPRAMIDE HCL 10 MG/2ML VIAL IV SCH ×3 (05:26→17:46)
--- NOTE | 2018-11-20 06:50 | NUR ---
Report given to the oncoming rn.walking rounds done.stable condition.
--- NOTE | 2018-11-20 07:00 | NUR ---
bedside rounds complete no distress noted, updated on poc, ivf infusing to r fa 22g no ss of infiltration noted, no other co voiced call light in reach will continue to monitor
[2018-11-20 08:00] VITALS: BP 141/65
[2018-11-20 09:30] VITALS: BP 141/65
[2018-11-20] MEDS: PANTOPRAZOLE 40 MG 10ML VIAL IV SCH (09:30)
[2018-11-20 12:57] VITALS: BP 133/65
[2018-11-20] MEDS: CEFTRIAXONE SOD 1 GM/NS 50 ML 50 ML IV SCH (12:59)
--- NOTE | 2018-11-20 13:07 | NUR ---
SPOKE WITH DR. Elisa GARICA RE: NG TUBE, INFORMED THIS NURSE NG TUBE STAYS IN PLACE Addendum: 11/20/18 at 1312 by Maddi Mackey RN PT GOING TO MED RESORT, WITH NG IN PLACE
--- NOTE | 2018-11-20 14:19 | NUR ---
CM SPOKE TO PATIENT AT BEDSIDE REGARDING IMM LETTER. IMM LETTER GIVEN WITH EXPLANATION BASED ON ANTICIPATED DISCHARGE DATE. ORIGINAL SIGNED AND PLACED IN CHART; COPY OF ORIGINAL DOCUMENT GIVEN TO PATIENT AT BEDSIDE AND PLACED IN CARE TRANSITION FOLDER. CM CONTACT INFORMATION GIVEN TO PATIENT FOR ANY NEEDS OR CONCERNS. PATIENT WITH NO FURTHER QUESTIONS.
[2018-11-20 18:16] VITALS: BP 139/73
== END 2018-11-20 18:14 | disposition hospice, inpatient (51) | DRG 374 ==
LOC: ER 10:26 → ERHOLD 14:53 → IMCU 17:55 → MED/SURG 11-15 01:54 → OBSVTOIN 11-15 14:25
PROC: 0DBL8ZX Excision of Transverse Colon, Via Natural or Artificial Opening Endoscopic, Diagnostic (ICD-10-PCS; 2018-11-16)
PROC: 0DBP8ZX Excision of Rectum, Via Natural or Artificial Opening Endoscopic, Diagnostic (ICD-10-PCS; principal; 2018-11-16 12:37)
DX: C20 Malignant neoplasm of rectum (principal); J69.0 Pneumonitis due to inhalation of food and vomit; E44.0 Moderate protein-calorie malnutrition; Z68.25 Body mass index [BMI] 25.0-25.9, adult; K57.90 Diverticulosis of intestine, part unspecified, without perforation or abscess without bleeding; K64.8 Other hemorrhoids
CPT/HCPCS: 36415; 45380; 71045; 74018; 74177; 80048; 80053; 81001; 82378; 82550; 82553; 83605; 83880; 84443; 84484; 85025; 85610; 85730; 87040; 87086; 87186; 87400; 88305; 88342; 93005; 99284; G0378; J0696; J2001; J2270; J2405; J2765; J3480; J7030; Q9967